=== PATIENT | female | born 2000 | race Caucasian/White ===

== ENCOUNTER 2021-07-06 10:01 | Outpatient (CLI) | payer OTHER, SELFPAY ==
--- NOTE | ~2021-07-06 | CT_ITS ---
EXAMINATION: CT sinus wo con DATE: 07/06/2021 10:22 INDICATION: Chronic sinusitis TECHNIQUE: Computed tomography (CT) of the paranasal sinuses was performed without contrast. Iterativ e reconstruction technique was employed. Exam dose: 282.66 mGy-cm total exam DLP. COMPARISON: None FINDINGS: There is leftward deviation of the nasal septum. There is asymmetric soft tissue swelling o f the right middle and inferior nasal turbinates. There is prominent soft tissue thickening at the maxillary ostium and infundibulum bilaterally. There is prominent bilateral maxillary sinus mucoperiosteal thickening Bilateral maxillary sinus fluid levels. There is prominent patchy opacification of ethmoid air cells bilaterally. Moderately prominent mucoperiosteal thickening of the left frontal sinus. The right frontal sinus is clear. There is minimal mucoperiosteal thickening of the sphenoid sinuses. The mastoid air cells are normally developed and aerated. IMPRESSION: Leftward deviation of nasal septum Asymmetric soft tissue swelling of right nasal turbinates Soft tissue opacification of maxillary ostium and infundibulum bilaterally Extensive mucoperiosteal thickening of the paranasal sinuses, particularly at the maxillary sinuses, ethmoid air cells and left frontal sinus Reviewed, dictated and finalized at [facility]. Reviewed, dictated and finalized at [facility]. IMPRESSION: Leftward deviation of nasal septum Asymmetric soft tissue swelling of right nasal turbinates Soft tissue opacification of maxillary ostium and infundibulum bilaterally Extensive mucoperiosteal thickening of the paranasal sinuses, particularly at t he maxillary sinuses, ethmoid air cells and left frontal sinus
== END 2021-07-06 10:02 ==
PROVIDERS: PCP Physician Assistant; Visit Provider Otolaryngology
DX: J32.9 Chronic sinusitis, unspecified (principal); J34.2 Deviated nasal septum
CPT/HCPCS: 70486

== ENCOUNTER 2021-09-19 12:49 | Outpatient (CLI) | payer OTHER, SELFPAY ==
--- NOTE | 2021-09-19 13:20 | ECG_ITS ---
Measurements Intervals [place] Rate: 80 P: 24 ID: 170 QRS: 78 QRSD: 80 T: 67 QT: 365 QTc: 422 Interpretive Statements SINUS RHYTHM MINIMAL Q WAVES- INFERIOR LEADS BASELINE ARTIFACT- I, II, III, AVR, AVL, AVF BORDERLINE ECG Electronically Signed On 09-19-2021 15:17:29 CDT by Claude Rivera D.O.
[2021-09-19 13:57] LABS: Hemoglobin 7.6 g/dL (12.0-15.0)
[2021-09-19 14:09] LABS: Anion Gap 10 mmol/L (8-16); Blood Urea Nitrogen 54 mg/dL (7-17); Calcium 8.5 mg/dL (8.4-10.2); Carbon Dioxide 23 mmol/L (22-30); Chloride 106 mmol/L (98-107); Estimated Glomerular Filt Rate 20; Glucose 95 mg/dL (65-110); INR 1.2; Potassium 4.6 mmol/L (3.4-5.0); Prothrombin Time 14.5 Seconds (11.1-14.7); Sodium 139 mmol/L (137-145)
[2021-09-19 14:10] LABS: Partial Thromboplastin Time 29.9 SECONDS (22.3-36.8)
== END 2021-09-19 12:50 | disposition home or self-care (01) ==
PROVIDERS: Anesthesiology; PCP Physician Assistant; Visit Provider Otolaryngology
DX: D64.9 Anemia, unspecified (principal); N05.1 Unspecified nephritic syndrome with focal and segmental glomerular lesions; I10 Essential (primary) hypertension; Z79.01 Long term (current) use of anticoagulants; Z01.818 Encounter for other preprocedural examination
CPT/HCPCS: 36415; 80048; 85014; 85018; 85610; 85730; 93005

== ENCOUNTER 2021-09-24 00:34 | Day surgery (SDC) | payer OTHER, SELFPAY ==
[2021-09-17 12:46] VITALS: BMI 15.7
--- NOTE | 2021-09-17 12:56 | PC.NURSE ---
Report to the Outpatient Waiting Room, entrance under the green pavilion located off [facility], at time 7:00 on date 09/24/21. OR Time: 9:00. - You and your visitor will be asked a series of questions to screen for COVID 19 for your protection. - Only one visitor is allowed at this time. - The patient visitor is requested to leave or wait in car when not with patient. - A mask is required within the hospital. Patients may have clear liquids (water, carbonated beverages, clear teas, apple juice) until 3 hours prior to surgery (6:00) with a maximum of 20 ounces. - No food from midnight until time of surgery Take the following medications with a SIP of water the morning of surgery: LEVOTHYROXINE, MYFORTIC, PREDNISONE, TACROLIMUS Medications to discontinue per physician: VITAMINS/SUPPLEMENTS Date to take last dose: 09/20/21 Please no make-up, nail malagasy, hairspray, perfume, deodorant, or body powder the day of surgery. No jewelry (including any body piercings) or valuables the day of surgery, leave them at home. Please take a shower or bath the night before, or the morning of, surgery with an antibacterial soap. Wear comfortable, loose fitting clothing. - Jewelry must be removed prior to entering the operating room. Rings and piercings that are not removed may be cut off. - The hospital will not accept responsibility for valuables. - Please leave all valuables, including medications, at home the day of surgery. If you are going home after surgery, a licensed school bus driver/mechanic must drive you home. - NO public transportation without another adult. - We recommend that an adult stay with you for 24 hours following discharge. - We also recommend that you do not drive, make important decision, drink alcoholic beverages, or take any drugs that were not prescribed by your health care provider for at least 24 hours after your discharge time. Follow any additional instructions given to you from your surgeon. If you or anyone in your household have experienced Covid symptoms in the past week, please notify your surgeon or the nurse liaison at the phone number below for possible testing. Telephone instructions given to PT- STAR GUAMAN and asked if any additional questions and then verbalized understanding. Patient advised to call surgeon office or pre surgery nurse liaison [phone] if any additional questions.
--- NOTE | 2021-09-21 14:11 | WPDANESEPPF ---
Anes - Initial Pre Proc Eval Procedure: Operation Date: 09/24/21 09:00 Proposed Procedures p Endoscopic Septoplasty - Steve Martinez MD s Image Guided Bilateral Frontal Sinusotomy, Bilateral Ethmoidectomy, Bilateral Maxillary Antrostomy, Bilateral Turbinate Reduction with Bilateral Nasal Valve Repair - Steve Martinez MD Date/Time: 09/21/21 14:11 Surgeon: Steve Martinez MD Pre Op Diagnosis: Chronic Sinusitis Patient Data Age: 21 Gender: F Height: 1.65 m Weight: 43.09 kg Allergies Allergy/AdvReac Type Severity Reaction Status Date / Time grapefruit Allergy Other Verified 09/17/21 12:57 morphine Allergy Rash Verified 09/17/21 12:40 Home Medications Medication Instructions Recorded Confirmed Type cholecalciferol (vitamin D3) 125 125 mcg PO DAILY 09/17/21 09/17/21 History mcg (5,000 unit) tablet (Vitamin D3) epoetin joe-epbx 40,000 unit/mL 20,000 unit subcut WEEKLY 09/17/21 09/17/21 History injection solution (Retacrit) ferrous sulfate 325 mg (65 mg 325 mg PO DAILY 09/17/21 09/17/21 History iron) tablet (Iron (ferrous sulfate)) levothyroxine 50 mcg tablet 50 mcg PO DAILY 09/17/21 09/17/21 History lisinopril 20 mg tablet 20 mg PO DAILY 09/17/21 09/17/21 History multivitamin 1 tablet PO DAILY 09/17/21 09/17/21 History mycophenolate sodium 360 mg 360 mg PO BID 09/17/21 09/17/21 History tablet,delayed release (Myfortic) norethindrone (contraceptive) 0.35 0.35 mg PO DAILY 09/17/21 09/17/21 History mg tablet nortriptyline 50 mg capsule 100 mg PO HS 09/17/21 09/17/21 History pravastatin 20 mg tablet 20 mg PO DAILY 09/17/21 09/17/21 History prednisone 5 mg tablet 5 mg PO DAILY 09/17/21 09/17/21 History propranolol 80 mg tablet 80 mg PO HS 09/17/21 09/17/21 History tacrolimus 1 mg capsule, 3 mg PO HS 09/17/21 09/17/21 History immediate-release tacrolimus 1 mg capsule, 4 mg PO DAILY 09/17/21 09/17/21 History immediate-release Patient hx anesthesia problems: none Family hx anesthesia problems: none Results Review: All pre-operative results and documents have been reviewed as part of the pre-operative evaluation. [facility] Past Medical History Medical History Anemia HTN (hypertension) Hypercholesterolemia Hypothyroidism Surgical History Surgical History Kidney transplant recipient Social History Social History Smoking status: Never smoker Alcohol intake: never Substance use: never Substance use type: does not use Living arrangements: with family Spiritual care concerns: No Anes - Eval Final PreProcedure Day of Procedure 09/21/21 14:11 Patient weight: normal Heart: regular rate and rhythm Lungs: clear to auscultation and normal air movement Airway: Mallampati scale class II Neurological: alert and oriented Last oral intake: >/= 8 hours ASA classification: III Emergent: no Anesthetic plan: proceed Anesthesia type and monitoring: general ETT Results Review: All pre-operative results and documents have been reviewed as part of the pre-operative evaluation. Informed Consent: The patient's anesthetic plan and its attendant risks and benefits were discussed with the patient/family/POA. Questions were solicited and answers provided to the satisfaction of the patient/family/POA.
[2021-09-24] VITALS (12 sets, daily range): BP systolic 150–201; BP diastolic 104–134; PULSE 64–82; RESP 8–18; TEMP 36.5–36.9; O2SAT 99–100
[2021-09-24] MEDS: ACETAMINOPHEN 500 MG TABLET 1000 MG PO (07:54)
[2021-09-24] MEDS: LACTATED RINGERS 1,000 ML 30 ML IV CONT (08:03)
--- NOTE | 2021-09-24 08:13 | P.HP_ITS ---
H&P: HPI History of Present Illness Date/Time: 09/24/21 08:13 Chief Complaint: Chronic sinusitis, nasal dyspnea Review of Systems Review of Systems: All systems reviewed & are unremarkable except as noted in HPI and below [facility] Past Medical History Medical History Anemia HTN (hypertension) Hypercholesterolemia Hypothyroidism Surgical History Surgical History Kidney transplant recipient Social History Social History Smoking status: Never smoker Alcohol intake: never Substance use: never Substance use type: does not use Living arrangements: with family Spiritual care concerns: No Meds Home Medications and Allergies Home Medications Medication Instructions Recorded Confirmed Type cholecalciferol (vitamin D3) 125 125 mcg PO DAILY 09/17/21 09/17/21 History mcg (5,000 unit) tablet (Vitamin D3) epoetin joe-epbx 40,000 unit/mL 20,000 unit subcut WEEKLY 09/17/21 09/17/21 History injection solution (Retacrit) ferrous sulfate 325 mg (65 mg 325 mg PO DAILY 09/17/21 09/17/21 History iron) tablet (Iron (ferrous sulfate)) levothyroxine 50 mcg tablet 50 mcg PO DAILY 09/17/21 09/17/21 History lisinopril 20 mg tablet 20 mg PO DAILY 09/17/21 09/17/21 History multivitamin 1 tablet PO DAILY 09/17/21 09/17/21 History mycophenolate sodium 360 mg 360 mg PO BID 09/17/21 09/17/21 History tablet,delayed release (Myfortic) norethindrone (contraceptive) 0.35 0.35 mg PO DAILY 09/17/21 09/17/21 History mg tablet nortriptyline 50 mg capsule 100 mg PO HS 09/17/21 09/17/21 History pravastatin 20 mg tablet 20 mg PO DAILY 09/17/21 09/17/21 History prednisone 5 mg tablet 5 mg PO DAILY 09/17/21 09/17/21 History propranolol 80 mg tablet 80 mg PO HS 09/17/21 09/17/21 History tacrolimus 1 mg capsule, 3 mg PO HS 09/17/21 09/17/21 History immediate-release tacrolimus 1 mg capsule, 4 mg PO DAILY 09/17/21 09/17/21 History immediate-release Allergies Allergy/AdvReac Type Severity Reaction Status Date / Time grapefruit Allergy Other Verified 09/17/21 12:57 morphine Allergy Rash Verified 09/17/21 12:40 Exam Narrative: Left septal deviation, chronic pansinusitis, bilateral nasal valve collapse. Rest of exam unremarkable. Assessment and Plan Assessment and plan (1) Chronic pansinusitis: Code(s): J32.4 - Chronic pansinusitis Status: Acute Assessment and Plan: Lai is here today for FESS, septoplasty, turbinoplasty and bilateral nasal valve repair. History of chronic sinus disease as well as nasal deformity affecting breathing. Hx of renal transplant. r/b/a reviewed, she understands and agrees to proceed with todays surgery. Refer to outpt H&P for full details. (2) Deviated septum: Code(s): J34.2 - Deviated nasal septum Status: Acute (3) Acquired deformity of nose: Code(s): M95.0 - Acquired deformity of nose Status: Acute
--- NOTE | 2021-09-24 09:07 | WPDHPUPDATE1 ---
History and Physical Update Update Date/Time: 09/24/21 09:07 History and Physical has been reviewed, including an updated exam of the patient. There are NO changes in the patient's condition. Risks, benefits, and alternatives have been discussed and questions answered. Patient agrees to proceed with procedure.
[2021-09-24] MEDS: OXYMETAZOLINE HCL 0.05% NAS 15 ML BTL (*BKC) 1 SPRAY NASAL (09:13)
[2021-09-24] MEDS: CEFAZOLIN IVPB (09:15)
[2021-09-24] MEDS: DEXTROSE 5% IVPB (09:15)
[2021-09-24] MEDS: WATER IVPB (09:15)
[2021-09-24] MEDS: LIDO 1%/EPINEPHRINE 1:100,000 10 ML VIAL 5 ML INFILTRATE (09:31)
--- NOTE | 2021-09-24 11:06 | W.PM.PROC2 ---
Procedure Note - Detailed Date of Procedure 09/24/21 Pre-op Diagnosis Chronic Sinusitis, deviated septum, nasal valve collapse Post-op Diagnosis Same Procedure Performed Endoscopic sepotplasty, bilateral nasal valve repair via alar ana graft, bilateral maxillary antrostomy, total ethmoidectomy, balloon assisted frontal sinusotomy, turbinoplasty, image guided surgery Surgeon Steve Martinez MD Anesthesia General Indications chronic sinusitis, deviated septum, nasal valve collapse Findings Bilateral alar ana grafts, left deviated septum, chronic sinusitis Description of Procedure DESCRIPTION OF PROCEDURE: After obtaining informed consent and proper site verification the patient was brought to the operating room and placed on the operating table in the supine position. They were placed under general endotracheal anesthesia by the anesthesia provider. The patient was then draped in standard fashion for endoscopic sinus surgery, nasal valve repair, septoplasty and turbinoplasty. The diffusion image guidance system was calibrated and used for the entire case. A timeout was performed and the correct patient and procedure were verified. The nasal cavity was injected with 1% lidocaine with 1-100,000 epinephrine and packed with afrin-soaked cottonoid pledgets. Attention was then directed to the nasal septum. A hemitransfixion incision was made in the left caudal septum and a mucoperichondrial flap was elevated in the usual fashion. The flap was elevated under endoscopic visualization and the remainder of the case was performed with endoscopic assistance. Using a D-knife, an incision was made through the cartilaginous septum with care to preserve the appropriate caudal and dorsal ?L-strut? of cartilage. The cartilage was then disarticulated from the bony-cartilaginous junction and the deviated cartilage was removed. Further deviated bone and cartilage was removed from the maxillary crest and posterior bony septum with care to avoid injury to the mucoperichondrial flap using a combination of dissection and Fontana-Amy forceps. Once this was completed, the hemitransfixion incision was closed using simple interrupted 4-0 chromic suture. A quilting stitch to reapproximate the mucoperichondrial flaps was then placed using 4-0 plain gut suture on a Asa needle.? The medial ana of lower lateral cartilages were flared significantly and a 5-0 PDS suture was used in a horizontal mattress fashion to pull them medially which improved nasal airway. The cartilage was set aside and saved for later grafting. Next attention was directed to the turbinates. Using a 0? telescope and 2mm turbinate blade microdebrider, a stab incision was made in the anterior face of the turbinate and dissection was carried posterior to perform submucosal resection. Next the turbinate was outfractured using a blunt instrument. A similar procedure was then performed on the right-hand side without difficulty. The previously harvested septal cartilage was then carved into two appropriately sized alar ana grafts.? Marginal incisions were made bilaterally through the vestibular nasal skin.? Using curved iris scissors, a pocket was dissected laterally along the lower lateral crura out to the piriform aperture for placement of the grafts.? The grafts were then placed into the dissected pockets bilaterally.? Once secure, the incisions were closed with 4-0 chromic suture. Next, attention was directed to the sinuses. Starting on the right side, 1% lidocaine with 1:100,000 epinephrine was then injected into the root of the middle turbinate and lateral nasal wall. The middle turbinate was medialized and the osteomeatal complex was identified with a chito probe. Using a 90 degree backbiter, the uncinate process was reflected anteriorly and removed using a combination of sharp and powered dissection. The maxillary antrostomy was then created and widened by identifying the natural ostia and opening the sinus wi
[2021-09-24] MEDS: hydrALAZINE HCL 20 MG/ML VIAL 10 MG IV PUSH (11:22)
[2021-09-24] MEDS: fentaNYL CITRATE INJ (*CRX) 100 MCG/2 ML VIAL 25 MCG IV PUSH (11:38)
[2021-09-24] MEDS: LABETALOL HCL INJ 100 MG/20 ML VIAL 10 MG IV PUSH (13:09)
[2021-09-24] MEDS: oxyCODONE HCL (*CRX) 5 MG TAB IR PO (13:22)
--- NOTE | 2021-09-24 13:28 | SUR.PHASEII ---
Dr. Ruiz aware of BP and wanted to give Labetalol to bring pressure down before discharge.
--- NOTE | 2021-09-24 13:49 | SUR.PHASEII ---
Dr. Ruiz ok with sending patient home with elevated BP. He told me to tell the family to follow-up with renal.
== END 2021-09-24 13:55 | disposition home or self-care (01) ==
PROVIDERS: PCP Physician Assistant; Visit Provider Otolaryngology
PROC: (CPT 30520; principal; 2021-09-24 09:00)
PROC: (CPT 30520; 2021-09-24 09:00)
DX: J32.8 Other chronic sinusitis (principal); J34.2 Deviated nasal septum; E03.9 Hypothyroidism, unspecified; M95.0 Acquired deformity of nose; D64.9 Anemia, unspecified; I10 Essential (primary) hypertension; E78.00 Pure hypercholesterolemia, unspecified
CPT/HCPCS: 30520; 61782; 30465; 31256; 31253; 30140; 36415; 80048; 85014; 85018; 85610; 85730; 86850; 86900; 86901; 93005; A9270; J0360; J0690; J1100; J2250; J2405; J2704; J2765; J3010; J7120